=== PATIENT | female | born 1965 | race Caucasian/White ===

== ENCOUNTER 2019-01-09 21:12 | Inpatient (IN) ==
--- NOTE | 2019-01-09 23:07 | PROVIDER DOCUMENTATION ---
HPI-Neurological Disorder - General Chief Complaint: Numbness Stated Complaint: FACIAL PAIN Time Seen by Provider: 01/09/19 22:55 Source: patient Allergies/Adverse Reactions: Patient Allergies Allergy/AdvReac Type Severity Reaction Status Date / Time meperidine [From Demerol] Allergy Severe seizures Verified 01/08/19 20:50 Home Medications: Home Medication List Medication Instructions Recorded Confirmed Last Taken Type NK [No Home Medications] 01/09/19 01/09/19 Unknown History - History of Present Illness-Neuro Nature of Presenting Problem: Patient is a 53yo F who presents w/ c/o R sided headache/facial pain and numbness x2 days. Also reports she has "not been feeling like herself" and has been "slow" for 2 days. Also reports numbness on R side of her body yesterday. PERRLA/EOMI. Motor strength symmetrical bilaterally. Headache Location: reports: temporal (bilateral) Severity: reports: moderate Onset/Duration: reports: 2 days ago Timing: reports: still present, intermittent Context: reports: none Character of Altered Mental Status: reports: N/A Any recent trauma/injury?: reports: none Character of Deficits: reports: altered sensation (R face numbness) New weakness or altered sensation location:: reports: right facial (numbness) Cognitive Baseline: alert, oriented x3 Gait Baseline: walks without assistance Associated Symptoms: reports: headache (temporal). denies: decreased ability to walk or stand, dizziness, confusion, numbness in legs/feet, slurred speech, tingling in legs/feet, vomiting, weakness Similar Symptoms Previously?: No Recently seen or treated by another doctor?: No Review of Systems - Adult - REVIEW OF SYSTEMS - ADULT Constitutional: denies: chills, fever Eyes: reports: no symptoms reported Ears, Nose, Mouth & Throat: reports: no symptoms reported Cardiovascular: denies: chest pain, palpitations Respiratory: denies: cough, shortness of breath Gastrointestinal: denies: diarrhea, nausea, vomiting Genitourinary: reports: no symptoms reported Musculoskeletal: reports: no symptoms reported Integumentary: reports: no symptoms reported Neurological: reports: headache/migraines, numbness (R face). denies: ataxia, dizziness/vertigo, paresthesia, seizure, slurred speech, syncope, tremors Psychiatric: reports: no symptoms reported Endocrine: reports: no symptoms reported All Other Systems: Reviewed and Negative Past History - Adult - PAST MEDICAL HISTORY-ADULT Review of Records: reports: Nursing Assessment Review, Medications Reviewed - IMMUNIZATION STATUS Childhood Immunizations: See Nurse Assessment Flu Vaccine: See Nurse Assessment - FAMILY HISTORY Family History: reviewed, not pertinent - SOCIAL HISTORY Smoking: cigarettes Provider spent 3-5 mins advising pt. on dangers of tobacco.: Discussed manners to quit use, and f/u contacts for add'l counseling. Physical Exam- Neurological - Physical Exam-Neuro Initial Vital Signs Reviewed: Yes General Appearance: appears well, alert, no apparent distress Eye Exam: bilateral eye: normal inspection, PERRL, EOMI HENMT: normocephalic/atraumatic, moist mucous membranes Head Injury: no evidence of injury Neck: full range of motion, supple, normal inspection Respiratory: chest non-tender, lungs clear, normal breath sounds, no pleuratic chest pain, no respiratory distress, no accessory muscle use Cardiovascular: regular rate, rhythm, no gallop, no murmur Extremity: normal range of motion, non-tender, normal gait, 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 negative: abnormal eye position, abnormal gag reflex, abnormal pupil position, abnormal speech, facial asymmetry, facial paresthesias, facial weakness Coordination/Gait: normal finger to nose, normal gait, negative Romberg's sign Motor/Sensory: no motor deficit, no sensory deficit, no pronator drift. negative: sensory deficit, weak motor strength RUE, weak motor strength LUE, weak motor strength RLE, weak motor strength LLE Neurologic: grossly normal. negative: abnormal gait, EOM palsy, facial droop, focal weakness, motor weakness, sensory deficit Integumentary: normal color, warm/dry Psych/Mental Status: normal mood/affect, normal thought content, normal thought process, oriented x 3 - Glascow Coma Scale Best Eye Response: (4) open spontaneously Best Verbal Response: (5) oriented Best Motor Response: (6) obeys commands Total Glascow Score: 15 Progress - PLAN OF CARE/RESULTS Progress/Plan/Lab Results: Vital Signs - 8 hr 01/09/19 21:47 Temperature 97.9 F Pulse Rate 87 Respiratory Rate 18 Blood Pressure 131/83 O2 Sat by Pulse Oximetry 100 Laboratory Results - last 24 hr 01/09/19 01/09/19 01/09/19 21:55 21:55 23:04 WBC 6.36 RBC 4.55 Hgb 13.8 Hct 41.0 MCV 90.1 MCH 30.3 MCHC 33.7 RDW Std Deviation 12.1 Plt Count 295 MPV 8.8 Immature Gran % (Auto) 0.2 Neut % (Auto) 50.5 Lymph % (Auto) 37.4 [place] % (Auto) 9.6 H Eos % (Auto) 1.7 Baso % (Auto) 0.6 Immature Gran # (Auto) 0.01 Neut # (Auto) 3.21 Lymph # (Auto) 2.38 [place] # (Auto) 0.61 H Eos # (Auto) 0.11 Baso # (Auto) 0.04 PT INR PTT (Actin FS) Sodium Potassium Chloride Carbon Dioxide Anion Gap BUN Creatinine Estimated GFR/1.73 m2 BUN/Creatinine Ratio Glucose Calculated Osmolality Calcium Total Bilirubin AST ALT Alkaline Phosphatase Total Protein Albumin Globulin Albumin/Globulin Ratio Urine Source CLEAN CATCH Urine Color YELLOW Urine Clarity CLEAR Urine pH 8.0 Ur Specific [place] 1.025 Urine Protein TRACE A Urine Ketones TRACE Urine Blood NEGATIVE Urine Nitrite NEGATIVE Urine Bilirubin NEGATIVE Urine Urobilinogen NORMAL Urine Microscopic RBC <10 Urine WBC TRACE A Urine Microscopic WBC <10 Ur Epithelial Cells <10 Urine Bacteria 1+ Urine Glucose NEGATIVE Urine Opiates Screen NONE DETECTED Ur Oxycodone Screen NONE DETECTED Urine Methadone Screen NONE DETECTED U Propoxyphene Qual NONE DETECTED Ur Barbituates Screen NONE DETECTED Ur Tricyclics Screen NONE DETECTED Ur Phencyclidine Scrn NONE DETECTED Ur Amphetamines Screen PRESUMPTIVE POSITIVE A U Methamphetamines Scrn PRESUMPTIVE POSITIVE A U Benzodiazepines Scrn NONE DETECTED Urine Cocaine Screen NONE DETECTED U Cannabinoids Screen NONE DETECTED 01/09/19 01/09/19 23:04 23:04 WBC RBC Hgb Hct MCV MCH MCHC RDW Std Deviation Plt Count MPV Immature Gran % (Auto) Neut % (Auto) Lymph % (Auto) [place] % (Auto) Eos % (Auto) Baso % (Auto) Immature Gran # (Auto) Neut # (Auto) Lymph # (Auto) [place] # (Auto) Eos # (Auto) Baso # (Auto) PT 11.8 INR 0.83 PTT (Actin FS) 28.2 Sodium 140 Potassium 4.2 Chloride 105 Carbon Dioxide 25 Anion Gap 10 BUN 14 Creatinine 0.4 L Estimated GFR/1.73 m2 > 60 BUN/Creatinine Ratio 35 Glucose 105 H Calculated Osmolality 280 Calcium 8.7 L Total Bilirubin 0.20 AST 28 ALT 25 Alkaline Phosphatase 76 Total Protein 7.0 Albumin 3.7 Globulin 3.0 Albumin/Globulin Ratio 1.0 Urine Source Urine Color Urine Clarity Urine pH Ur Specific [place] Urine Protein Urine Ketones Urine Blood Urine Nitrite Urine Bilirubin Urine Urobilinogen Urine Microscopic RBC Urine WBC Urine Microscopic WBC Ur Epithelial Cells Urine Bacteria Urine Glucose Urine Opiates Screen Ur Oxycodone Screen Urine Methadone Screen U Propoxyphene Qual Ur Barbituates Screen Ur Tricyclics Screen Ur Phencyclidine Scrn Ur Amphetamines Screen U Methamphetamines Scrn U Benzodiazepines Scrn Urine Cocaine Screen U Cannabinoids Screen Orders Category Date Time Status CT HEAD W/O CONTRAST [CT] Stat Exams 01/09/19 22:55 Taken CBC WITH ELECTRONIC DIFF [HEME] Stat Lab 01/09/19 23:04 Completed COMPREHENSIVE METABOLIC PANEL [CHEM] Stat Lab 01/09/19 23:04 Completed PROTIME WITH INR [COAG] Stat Lab 01/09/19 23:04 Completed PTT [COAG] Stat Lab 01/09/19 23:[address] W/POSS RFLX CULT [URINALYSIS] Stat Lab 01/09/19 21:55 Completed URINE CULTURE [RM] Routine Lab 01/09/19 23:17 [address]UG SCREEN [address] Stat Lab 01/09/19 21:55 Completed Imaging results and plan of care discussed with patient who verbalizes understanding. Stroke like symptoms on R side/face. Improved while in ED. Admit for obser vation. Result Diagrams: 01/09/19 23:04 01/09/19 23:04 - CT/MRI 1 CT Study: Head Impression: Normal ("No acute intracranial hemorrhage or process identified.") - CONSULTS/PCP/HOSPITALIST Notification #1 *Consult/PCP/Hospitalist*: MD Shira Time Discussed: 00:14 Reason/Comments: Admit for TIA observation Consult Disposition: Admit Departure - Departure Date of Disposition Decision: 01/10/19 Time of Disposition Decision: 00:17 DIAGNOSIS: Numbness on right side, Methamphetamine use, Stroke-like symptoms Disposition: ADMITTED INPATIENT 09 Certified Medical Emergency: Emergent Condition: Stable Referrals and Follow-Ups: None,PCP [Primary Care Provider] - - Critical Care Note This patient required my direct & personal management of CC.: No Attestation - Physician/ CORA Attestation Patient care was provided by Advanced Practice Provider:: Yes Advanced Practice Provider:: Patricia Sands Advanced Practice Provider documentation review:: The Mid-level provider documentation, treatment plan and medical decision making was reviewed by the physician who agrees with all treatment and medical decision making by the MLP. The physician spent face to face time with patient:: No Advanced Practice Provider documentation review:: Supervising physician onsite and consulted in the evaluation and care of this patient. The physician did not have a face to face encounter with the patient. - NIH Stroke Scale NIH Type: Initial Evaluation Level of Consciousness: 0-Alert LOC Questions (ask month and age): 0-Answers Both Correctly LOC Commands (ask to open & close eyes;make a fist, let go): 0-Obeys Both Correctly Best Gaze (horizontal eye movement): 0-Normal Visual (use finger movement, counting or visual threat): 0-No Visual Loss Facial Palsy (show teeth or raise eyebrows & close eyes tght: 0-Symmetrical Movement Motor Function-left arm: 0-Normal Motor Function-right arm: 0-Normal Motor Function-left le-Normal Motor Function-right le-Normal Limb Ataxia(kgcrsa-[id number], or heel to anderson): 0-No Ataxia Sensory(pin prick to face,arms,trunk,legs-compare side/side): 0-No Ataxia Best Language(name item/read sentence.Ex-Down to Earth): 0-No Aphasia Dysarthria(Pt read words or say words Ex.Mama,Tip-Top,Thanks: 0-Normal Articulation Extinction and Inattention: 0-Normal NIH Total Score: 0
[2019-01-09 23:13] LABS: BASO# 0.04 X1000 (0.0-0.2); BASO% 0.6 % (0.0-0.8); EOS# 0.11 X1000 (0.0-0.7); EOS% 1.7 % (0.0-10.0); HEMOGLOBIN 13.8 g/dL (12.0-16.0); IMM GRAN# 0.01 X1000 (0.0-0.04); IMM GRAN% 0.2 % (0.0-0.5); LYMPH# 2.38 X1000 (1.2-3.4); LYMPH% 37.4 % (20.5-51.1); MCH 30.3 PG (27-31); MCHC 33.7 g/dL (33-37); MCV 90.1 FL (81-99); MONO# 0.61 X1000 (0.11-0.59); MONO% 9.6 % (1.7-9.3); MPV 8.8 FL (7.4-10.4); NEUT# 3.21 X1000 (1.4-6.5); NEUT% 50.5 % (42.2-75.2); PLT 295 X1000 (130-400); RBC 4.55 XMIL (4.2-5.4); RDW 12.1 % (11.5-14.5); WBC 6.36 X1000 (4.8-10.8)
[2019-01-09 23:15] LABS: URINE BACTERIA 1+ /HFP; URINE EPITHELIAL CELLS <10 /HPF (<10); URINE RBC <10 /HPF (<10); URINE SOURCE CLEAN CATCH; URINE WBC <10 /HPF (<10)
[2019-01-09 23:16] LABS: CLARITY CLEAR (CLEAR); COLOR YELLOW; UR AMPHETAMINES QUAL PRESUMPTIVE POSITIVE (NONE DETECT); UR BARBITUATES QUAL NONE DETECTED (NONE DETECT); UR BENZODIAZEPIN QUAL NONE DETECTED (NONE DETECT); UR CANNABINOIDS QUAL NONE DETECTED (NONE DETECT); UR COCAINE QUAL NONE DETECTED (NONE DETECT); UR METHADONE QUAL NONE DETECTED (NONE DETECT); UR METHAMPHETAMINE QUAL PRESUMPTIVE POSITIVE (NONE DETECT); UR OPIATES QUAL NONE DETECTED (NONE DETECT); UR OXYCODONE QUAL NONE DETECTED (NONE DETECT); UR PCP QUAL NONE DETECTED (NONE DETECT); UR PROPOXYPHENE QUAL NONE DETECTED (NONE DETECT); UR TCA QUAL NONE DETECTED (NONE DETECT)
[2019-01-09 23:17] LABS: BILIRUBIN URINE NEGATIVE (NEGATIVE); BLOOD URINE NEGATIVE (NEGATIVE); GLUCOSE URINE NEGATIVE (NEGATIVE); KETONE URINE TRACE mg/dL (NEGATIVE); LEUKOCYTES URINE TRACE (NEGATIVE); NITRITE URINE NEGATIVE (NEGATIVE); PROTEIN URINE TRACE mg/dL (NEGATIVE); SP GRAVITY URINE 1.025; UROBILINOGEN URINE NORMAL
[2019-01-09 23:26] LABS: INR 0.83; PROTIME 11.8 Seconds (11.0-16.0)
[2019-01-09 23:27] LABS: PTT 28.2 Seconds (22.3-41.8)
[2019-01-09 23:34] LABS: AGAP 10; ALBUMIN 3.7 g/dL (3.5-5.0); ALKALINE PHOSPHATASE 76 U/L (32-104); BUN 14 mg/dL (8-22); CALCIUM 8.7 mg/dL (8.8-10.2); CHLORIDE 105 mmol/L (98-107); COSMO 280; CREATININE 0.4 mg/dL (0.5-0.9); ESTIMATED GFR > 60; GLUCOSE 105 mg/dL (70-104); GOT 28 U/L (10-30); GPT 25 U/L (10-36); POTASSIUM 4.2 mmol/L (3.5-5.1); SODIUM 140 mmol/L (136-145); TCO2 25 mmol/L (25-35)
[2019-01-10] MEDS ORDERED: NS 1,000 ML IV ONE ×2 (00:16→03:22)
[2019-01-10] MEDS ORDERED: TYLENOL PO ONE (00:40)
--- NOTE | 2019-01-10 07:28 | Diag Imaging Result Doc PS360 ---
EXAM: CT HEAD W/O CONTRAST - 01/09/2019 HISTORY: Numbness TECHNIQUE: CT head without contrast COMPARISON: None. FINDINGS: There is a small area of subtle hyperdensity at the posterior right thalamus. This is less conspicuous than typically would be expected with acute intracranial hemorrhage, and there is no associated edema. This is of uncertain significance. There is no other evidence of intracranial hemorrhage, mass effect, midline shift, or hydrocephalus. There is no evidence of infarct, although acute infarcts may not be. Visualized portions of paranasal sinuses and mastoid air cells appear clear. IMPRESSION: Small area of subtle hyperdensity at posterior right thalamus. This is less conspicuous than typical intracranial hemorrhage, and is of uncertain etiology. Correlation with MRI could be considered. The on-call radiologist provided preliminary results at 11:31 PM of 01/09/2019. This exam was performed using automated exposure control, adjustment of mA or kV according to patient size, and/or use of iterative reconstruction technique. Electronically signed by Gilbert Bowen 01/10/2019 7:25 AM
[2019-01-10] MEDS ORDERED: ASPIRIN PO SCH (09:00)
[2019-01-10 11:00] LABS: BASO# 0.04 X1000 (0.0-0.2); BASO% 0.7 % (0.0-0.8); EOS# 0.12 X1000 (0.0-0.7); EOS% 2.2 % (0.0-10.0); HEMATOCRIT 36.3 % (37.0-47.0); HEMOGLOBIN 11.9 g/dL (12.0-16.0); IMM GRAN# 0.01 X1000 (0.0-0.04); IMM GRAN% 0.2 % (0.0-0.5); LYMPH# 2.21 X1000 (1.2-3.4); LYMPH% 40.3 % (20.5-51.1); MCH 29.8 PG (27-31); MCHC 32.8 g/dL (33-37); MCV 90.8 FL (81-99); MONO# 0.46 X1000 (0.11-0.59); MONO% 8.4 % (1.7-9.3); NEUT# 2.64 X1000 (1.4-6.5); NEUT% 48.2 % (42.2-75.2); PLT 278 X1000 (130-400); WBC 5.48 X1000 (4.8-10.8)
[2019-01-10 11:19] LABS: AGAP 9; ALBUMIN 3.3 g/dL (3.5-5.0); ALKALINE PHOSPHATASE 67 U/L (32-104); BUN 13 mg/dL (8-22); CALCIUM 8.1 mg/dL (8.8-10.2); CHLORIDE 109 mmol/L (98-107); COSMO 281; CREATININE 0.4 mg/dL (0.5-0.9); ESTIMATED GFR > 60; GLUCOSE 99 mg/dL (70-104); GOT 24 U/L (10-30); GPT 21 U/L (10-36); POTASSIUM 4.1 mmol/L (3.5-5.1); SODIUM 141 mmol/L (136-145); TCO2 23 mmol/L (25-35)
--- NOTE | 2019-01-10 12:41 | HISTORY AND PHYSICAL ---
PRIMARY CARE PHYSICIAN: None. CHIEF COMPLAINT: Right-sided facial numbness, blurred vision, and right-sided upper and lower extremity weakness that began yesterday and progressively worsened. HISTORY OF PRESENTING ILLNESS: This is a 53-year-old female who presents to [facility] ER with complaints of right-sided facial numbness, headache, blurred vision on the right side, right-sided upper and lower extremity weakness. The patient's said that yesterday, he noticed that she was dragging her right leg when she walked. She states that she is a 2-pack a day smoker for the past 40 years. Used ICE last week, but prior to that had been clean for a year, so she has been admitted for further evaluation and treatment. PAST MEDICAL HISTORY: None. PAST SURGICAL HISTORY: section x2. FAMILY HISTORY: Cancer. SOCIAL HISTORY: She currently lives with family. She is a 2-pack a day smoker for the past 40 years. Denies any alcohol use. Used ICE last weekend. Prior to that, states she had been clean for a year. ALLERGIES: Meperidine. HOME MEDICATIONS: She does not take any medications on a routine basis. IMAGING AND LABORATORY DATA: Laboratory data showed a white blood cell count of 6.36, hemoglobin 13.8, hematocrit 41, platelets 295,000. PT and INR of 11.8 and 0.83. Sodium of 140, potassium 4.2, chloride 105, CO2 of 25, BUN of 14, creatinine 0.4, glucose 105. Urinalysis was negative, except for 1+ bacteria. Urine drug screen was positive for amphetamines and methamphetamines. CT of the head showed a small area of subtle hyperdensity at posterior right thalamus, less conspicuous than typical intracranial hemorrhage, and is of uncertain etiology. Correlation with MRI could be considered. REVIEW OF SYSTEMS: She denied any fever or chills. She has had blurred vision, headache, right- sided facial numbness. Denied any chest pain, coughing, shortness of breath. Denied any abdominal pain, constipation, diarrhea, burning or hurting with urination. She has right upper and lower extremity weakness. PHYSICAL EXAMINATION: VITAL SIGNS: On arrival, she had a temperature of 97.9 degrees, pulse 87, respirations 18, blood pressure 131/83, saturating 100% on room air. GENERAL: This is a 53-year-old female who is lying in the bed, answers questions appropriately. HEENT: Normocephalic, atraumatic. Normal ENT inspection. Oropharynx and nares are clear. Eyes: Pupils are equal, round, reactive to light and accommodation. Extraocular movements are intact. NECK: Normal inspection. Normal range of motion. LUNGS: Clear to auscultation bilaterally with equal lung expansion and chest wall movement. HEART: Regular rate and rhythm. No murmurs, rubs, or gallops. ABDOMEN: Soft, nontender, nondistended. Bowel sounds are present x4 quadrants. MUSCULOSKELETAL: She has 5/5 strength times her left upper and lower extremity. She has 1/5 strength to her right upper and lower extremity. NEUROLOGICAL: Cranial nerves II through XII appear grossly intact, but she is noted to have weakness to her right hand grasp, right arm movement, and right leg movement. ASSESSMENT: 1. Transient ischemic attack versus cerebrovascular accident. 2. Tobacco abuse. 3. Methamphetamine abuse. PLAN: She was admitted to the medical unit at [place]. We are going to check an MRI of the brain with and without contrast today, carotid Doppler ultrasound, an echocardiogram, place her on aspirin 325 mg p.o. daily, normal saline at 125 mL an hour, checking a lipid profile. Urine culture is pending. We will recheck in the a.m., a CBC and CMP, and place her on a healthy heart diet. Further orders after seen by attending. Dictated by DARRIN Wen for Matt Silva MD cc: DARRIN Wen MD
--- NOTE | 2019-01-10 14:26 | Extremity Venous Study ---
EXAM: Carotid Ultrasound - 01/10/2019 HISTORY: TIA vs CVA TECHNIQUE: Carotid flow studies COMPARISON: None. FINDINGS: There is noncalcified plaque at the carotid bulb/proximal internal carotid on the right. Maximum systolic velocity of the right internal carotid is 79 cm/s, and maximum diastolic velocity is 24 cm/s. The right internal to common carotid systolic velocity ratio is 0.90. The flow velocities and ratio are consistent with 0-39% stenosis at the right internal carotid. The right vertebral demonstrates antegrade flow. There is no substantial atherosclerotic plaquing identified in the left carotid system. Maximum systolic velocity in the left internal carotid is 73 cm/s, and maximum diastolic velocity is 27 cm/s. The left internal to common carotid systolic velocity ratio is 1.05. The flow velocities and ratio are consistent with 0-39% stenosis at the left internal carotid. The left vertebral demonstrates antegrade flow. IMPRESSION: Noncalcified atherosclerotic plaque at carotid bulb/proximal internal carotid on the right. Flow velocities and ratio are consistent with 0-39% stenosis at the right internal carotid. No substantial atherosclerotic plaquing left carotid system. Flow velocities and ratio are consistent with 0-39% stenosis at the left internal carotid. Electronically signed by Gilbert Bowen 01/10/2019 2:23 PM
[2019-01-10 16:00] VITALS: BP 119/76
[2019-01-10] MEDS ORDERED: NICODERM PATCH TD PRN (16:34)
--- NOTE | 2019-01-10 22:26 | ECHO REPORT ---
ORDER DATE: 01/10/2019 SUMMARY: 1. Technically difficult study due to limited acoustic window quality. 2. Aortic valve is trileaflet and opens normally on 2-dimensional images. Peak gradient across the aortic valve is less than 5 mmHg. Mitral and tricuspid valves are without evidence of structural abnormality with trace mitral regurgitation. Pulmonic valve is not well demonstrated. Aortic root is normal size. 3. Normal left ventricular dimensions suggested on 2-dimensional images. Estimated left ejection fraction appears to be at least 70%. No regional wall motion abnormality can be appreciated. Left atrium, right atrium, and right ventricle are normal in size with normal right ventricular systolic function. 4. No pericardial effusion. 5. Appearance of inferior vena cava suggests normal central venous pressure. cc: MD Naomi Ace CRNP
--- NOTE | 2019-01-11 14:56 | DISCHARGE SUMMARY ---
ADMISSION DATE: 01/10/2019 DISCHARGE DATE: 01/10/2019 ADDENDUM: The patient was admitted with right facial numbness, weakness, and right upper extremity weakness. She denies any real medical issues, however, she does abuse methamphetamines which initially she denied, but it was positive in her urine drug screen for both methamphetamine and amphetamine. Workup other than that was negative. The following day, we attempted to get an MRI but she could not complete it due to anxiety and she refused any medications to help her with anxiety so we could not prove one way or another if she truly had a TIA and CVA. She did admit to doing ice a week ago which I do not think it would still be in your system, but in any case. Workup was otherwise negative. Carotid Doppler was negative. I am not sure if the echo was completed. The patient got extremely frustrated later in the day because she could not go out and smoke. We did order a patch for her. When the nurse brought her back in she said she is going to leave AMA. She took off all her hospital clothes, took her IV out herself, and then left the building not wanting to complete medical care. She did not sign the AMA. DISCHARGE DIAGNOSIS: Possible TIA, although frankly I think this is probably related to just methamphetamine use, possibly even withdrawal, but we will continue to follow. Again, this is an AMA discharge. The patient was not seen by myself prior to discharge. Nurse practitioner did evaluate her earlier. cc: Matt Silva MD
== END 2019-01-10 14:41 | disposition left against medical advice (07) | DRG 69 ==
LOC: P.ED 21:12 → P.MEDSURG 01-10 03:03 → SUATTDRO 01-10 03:03
PROVIDERS: ATTEND Internal Medicine
CPT/HCPCS: 70450; 80053; 80061; 80104; 80301; 80305; 81001; 83721; 85025; 85610; 85730; 87088; 93306; 93880; 99285; A9270; G0431; G0434; G0477; J7030